=== PATIENT | male | born 1950 | race Caucasian/White ===

== ENCOUNTER → 2016-12-15 | Outpatient (CLI) | payer OTHER ==
[~2016-12-15] MED LIST: ASPIRIN81 M2 PO; CLARITIN10 M3 PO; COUMADIN PO; COUMADIN6 MG PO; HYDRALAZINE HCL50 MG PO; HYDROCHLOROTHIA25 MG PO; LOVENOX80 MG/0.8 INJ; METOPROLOL SUC200 MG PO; NORVASC10 MG PO; ZESTRIL40 MG PO
--- NOTE | ~2016-12-15 | CT57 ---
[facility] A Service of [facility] & [facility] RADIOLOGY TEXT RESULTS PATIENT: EMILE FAIRCHILD LOCATION: [facility] : 50 UNIT #: [id number] AGE: [address]: Salvatore Mondragon MD SEX: M ORDER DR: [id number] [facility] [address] [place], [place] [address] [id number] O MR#: [id number] [facility] #: [id number] NAME: EMILE FAIRCHILD : 1950 SEX: M STUDY DATE/TIME: 12/15/2016 11:09 UNIT: [facility] ROOM: STUDY DESCRIPTION: CT Chest Wo Cont Attending Physician: Salvatore Mondragon M.D. Ordering Physician: Salvatore Mondragon M.D. Primary Care Physician: Salvatore Mondragon M.D. MEDICAL IMAGING REPORT This report is preliminary unless electronic signature is present EXAM CT chest without contrast 12/15/2016 1109 hours CLINICAL HISTORY 66-year-old man complaining of shortness of air for 2 months. Evaluate widened mediastinum seen on chest x-ray. COMPARISON Chest CT 04/27/2013. No prior chest x-ray available for comparison. TECHNIQUE Helical noncontrasted images were obtained from the thoracic inlet through the adrenal glands. Sagittal and coronal reconstructions were performed. Total exam DLP 284 mGy-cm. This CT exam was performed with one or more of the following radiation dose reduction techniques: automatic exposure control, adjustment of mA and/or kV according to patient size, and iterative reconstruction. FINDINGS Images through the thoracic inlet demonstrate no thyroid lesion or supraclavicular adenopathy. Images through the chest demonstrates stable ectasia of the ascending aorta measuring 3.8 cm, previously 3.9 cm. There is increased fat in the superior mediastinum which may account for reported finding of widened mediastinum on chest x-ray. The aorta is also mildly tortuous but unchanged. Cardiac chambers and pericardium are normal. There is no pericardial fluid. There is a stable densely calcified subcarinal lymph node. There is no pathologic adenopathy. Lung window images demonstrate underlying emphysematous change. There is no nodule or infiltrate. No pleural fluid. STS. [facility] A Service of [facility] & [facility] RADIOLOGY TEXT RESULTS PATIENT: EMILE FAIRCHILD LOCATION: [facility] : 50 UNIT #: [id number] AGE: [address]: Salvatore Mondragon MD SEX: M ORDER DR: Limited views through the upper abdomen are normal. IMPRESSION 1. There is stable ectasia of the ascending aorta measuring up to 3.8 cm, previously 3.9 cm. There is increased fat in the superior mediastinum and the aorta is mildly tortuous which may account for reported widened mediastinum on prior chest x-ray. 2. Emphysematous and benign calcified granulomatous changes in the lungs. No change from 04/27/2013. There is no acute pulmonary or pleural finding. Dictated by... Fawn Giang M.D. THIS IS AN ELECTRONICALLY VERIFIED REPORT Fawn Giang M.D. at 12/15/2016 5:53 PM Kim TD: 12/15/2016 14:52 JOB #: [id number] MEDICAL IMAGING REPORT COPY
== END | disposition home or self-care (01) ==
LOC: CCAT 09:53
DX: J98.59 Other diseases of mediastinum, not elsewhere classified (principal); I77.810 Thoracic aortic ectasia; J43.9 Emphysema, unspecified
CPT/HCPCS: 71250